=== PATIENT | male | born 1990 | race Caucasian/White ===

== ENCOUNTER 2019-01-23 21:37 | Emergency (ER) | payer BC ==
--- NOTE | 2019-01-23 22:00 | NUR ---
CALLED PT TO BE TRIAGED, NO ANSWER
--- NOTE | 2019-01-23 22:07 | NUR ---
CALLED PT TO BE TRIAGED, NO ANSWER
== END 2019-01-23 22:08 | disposition left against medical advice (07) ==
LOC: ER 22:07
DX: Z53.21 Procedure and treatment not carried out due to patient leaving prior to being seen by health care provider (principal)